=== PATIENT | male | born 1990 | race Two or more races ===

== ENCOUNTER 2021-02-13 17:01 | Emergency (ER) | payer OTHER ==
[~2021-02-13] VITALS: Ht 177.8 cm; Wt 91.0 kg
--- NOTE | 2021-02-13 17:11 | NUR ---
This pt came from work, at [facility] [employer] [employer] where he was "on a foot chayito, running over curbs and everything." Sudden onset pain when he stopped and unable to bike. Pt was ambulatory to room with steady gait. NADN. Positioned to comfort, filling out workman's comp. Awaiting provider evaluation and orders.
[2021-02-13] MEDS ORDERED: KETOROLAC 30 MG/1 ML IM ONE (17:30)
--- NOTE | 2021-02-13 17:30 | NUR ---
pt ambulatory to imaging.
--- NOTE | 2021-02-13 17:34 | NUR ---
Nitza quintana in EDM - 02/13/21 at 1735 by SOLOMON bolus finished, bp up to 112/39, aware awaiting new orders.
[2021-02-13] MEDS ORDERED: KETOROLAC 30 MG/1 ML ONE (17:58)
[2021-02-13 18:45] VITALS: BP 153/106
--- NOTE | 2021-02-13 18:51 | NUR ---
Patient/Caregiver given discharge instructions and they have confirmed that they understand the instructions. Ice pack given. Patient ambulatory with steady gait.
== END 2021-02-13 18:52 | disposition home or self-care (01) ==
LOC: ED 18:28
DX: M25.561 Pain in right knee (principal); M25.562 Pain in left knee
CPT/HCPCS: 73564; 96372; 99283; J1885

== ENCOUNTER 2021-07-12 13:29 | Emergency (ER) | payer SELFPAY ==
--- NOTE | 2021-07-12 13:53 | NUR ---
SIGNED OUT WITH REGISTRATION
== END 2021-07-12 14:03 | disposition left against medical advice (07) ==
LOC: ED 13:45
DX: M79.672 Pain in left foot (principal); Z53.21 Procedure and treatment not carried out due to patient leaving prior to being seen by health care provider